=== PATIENT | female | born 1995 | race Two or more races ===

== ENCOUNTER → 2024-12-28 | Outpatient (CLI) | payer MEDICAID, SELFPAY ==
--- NOTE | 2024-12-28 12:30 | XR_ITS ---
Examination: MRI abdomen with intravenous contrast. MRI abdomen without intravenous contrast. Date and time of exam: December 28, 2024, 1259 hours INDICATIONS: Abdominal pain 2 months, elevated DHEA on laboratory examination 2 months ago Technique: Multiple axial, sagittal and coronal sections of the abdomen obtained. Transverse images, TR 6020, TE 107. T1 weighted transverse images, TR 582, TE 9.5. T2-weighted sagittal images, TR 4000, TE 105. T2-weighted sagittal images, TR 4000, TE 5. Coronal images, TR 4210, TE 107. Axial and coronal images are obtained post 19 cc intravenous injection, gadolinium. Findings: No focal liver lesions No extrahepatic biliary tract dilatation No renal or ureteral calculi Spleen is nonenlarged Normal adrenal glands No hydronephrosis Postcontrast images demonstrate no abnormal enhancing liver splenic or renal lesions No abdominal lymphadenopathy No ascites Pancreas is not enlarged IMPRESSION: No adrenal masses No abnormal enhancing liver splenic or renal lesions No abdominal lymphadenopathy
[2024-12-28 12:41] LABS: HCG Qualitative,Urine Negative
== END | disposition home or self-care (01) ==
LOC: SMRI 11:49
PROVIDERS: PCP Obstetrics & Gynecology; Referring Provider Obstetrics & Gynecology; Visit Provider Obstetrics & Gynecology
DX: E28.1 Androgen excess (principal); Z32.00 Encounter for pregnancy test, result unknown
CPT/HCPCS: 74183; 81025; A9577